=== PATIENT | female | born 1960 | race Caucasian/White ===

== ENCOUNTER → 2019-01-27 | Outpatient (CLI) | payer OTHER ==
--- NOTE | 2019-01-28 13:28 | MM ---
Reason for exam: screening (asymptomatic). Baseline mammogram. History: Patient is postmenopausal. Physical Findings: A clinical breast exam by your physician is recommended on an annual basis and results should be correlated with mammographic findings. MG 3D Screening Mammo W/Cad Bilateral CC and MLO view(s) were taken. No prior studies available for comparison. No suspicious abnormality. ASSESSMENT: Negative, BI-RAD 1 RECOMMENDATION: Routine screening mammogram of both breasts in 1 year.
== END | disposition home or self-care (01) ==
LOC: RADMAMWWP 11:14
PROVIDERS: ATTEND Family Medicine
DX: Z12.31 Encounter for screening mammogram for malignant neoplasm of breast (principal)
CPT/HCPCS: 77063; 77067

== ENCOUNTER 2019-09-04 09:16 | Day surgery (SDC) | payer OTHER ==
[2019-09-02 10:13] VITALS: BMI 28.5
[~2019-09-04 09:16] MED LIST: DEXAMETHASONE SOD PHOSPHATE 10 MG/ML 1 ML VIAL IV ONE; HEPARIN SODIUM,PORCINE 5,000 UNIT/ML 1 ML VIAL SQ ONE; LACTATED RINGERS 1,000 ML IV SCH; ONDANSETRON 4 MG/2 ML VIAL IVP PRN
[2019-09-04] MEDS ORDERED: GABAPENTIN 300 MG CAP PO STA (09:22)
[2019-09-04] MEDS ORDERED: ACETAMINOPHEN TAB 500 MG TAB PO STA (09:22)
[2019-09-04] MEDS ORDERED: INDOCYANINE GREEN 25 MG VIAL IV STA (09:22)
--- NOTE | 2019-09-04 09:25 | P.GSHP ---
History of Present Illness H&P Date: 09/04/19 CHIEF COMPLAINT: Cholecystitis HISTORY OF PRESENT ILLNESS: The patient is a 59-year-old female who presents with history of epigastric including right upper quadrant abdominal pain. She underwent diagnostic studies for her gallbladder. Separately her clinical picture was consistent with cholecystitis. Now she presents for surgical intervention. PAST MEDICAL HISTORY: Please see list PAST SURGICAL HISTORY: Please see list MEDICATIONS: Please see list ALLERGIES: Denies. SOCIAL HISTORY: No illicit drug use or recent tobacco use FAMILY HISTORY: Pertinent for gallbladder disease REVIEW OF ORGAN SYSTEMS: CONSTITUTIONAL: No reports of fevers or chills. HEENT: Denies any troubles with the vision or hearing. ENDOCRINE: No reports of hypothyroidism. Has diabetes. RESPIRATORY: No recent pneumonias. CARDIOVASCULAR: Denies chest pain or palpitations. Recent stress test 6 months a go. EF > 40%. GI: No blood in stools or constipation. MUSCULOSKELETAL: Has occasional joint pain including back pain. NEURO: No seizure disorders or headaches. No recent stroke. PSYCH: No depression or suicidal ideation. GENITOURINARY: No active blood in urine. No urinary hesitancy. HEMATOLOGIC: No personal or family history of DVTs or pulmonary emboli. SKIN: No skin cancer. PHYSICAL EXAM: VITAL SIGNS: Afebrile vital signs stable GENERAL: Well-developed pleasant in no acute distress. HEENT: No scleral icterus. Extraocular movements grossly intact. Moist buccal mucosa. NECK: Supple without lymphadenopathy. CHEST: Unlabored respirations. Equal bilateral excursions. CARDIOVASCULAR: Regular rate regular rhythm rhythm. Distal 2+ pulses. ABDOMEN: Soft, nondistended. Tender along the epigastrium and right upper quadrant. MUSCULOSKELETAL: No clubbing, cyanosis, or edema. NEURO: Cranial nerves II to XII within normal limits. No focal or lateralizing signs. PSYCH: Alert and oriented to person, place and time. SKIN: Well-perfused good skin turgor. ASSESSMENT: 1. Epigastric and right upper quadrant abdominal pain 2. Chronic cholecystitis 3. Symptomatic gallstones. PLAN: 1. Will need a robotic cholecystectomy possible open. Benefits and risks were described. 2. Heparin for DVT prophylaxis 5000 units. 3. Antibiotic prophylaxis. Past Medical History Past Medical History: Asthma, Diabetes Mellitus, GERD/Reflux, Hyperlipidemia, Hypertension, Myocardial Infarction ([place]) Additional Past Medical History / Comment(s): "allergy induced asthma" Last Myocardial Infarction Date:: 2001 History of Any Multi-Drug Resistant Organisms: None Reported Past Surgical History: Heart Catheterization, Tubal Ligation Past Anesthesia/Blood Transfusion Reactions: Postoperative Nausea & Vomiting (PONV) Smoking Status: Former smoker - Past Family History Mother Family Medical History: No Reported History Medications and Allergies Home Medications Medication Instructions Recorded Confirmed Type Atorvastatin [Lipitor] 10 mg PO DAILY 09/02/19 09/02/19 History Famotidine [Pepcid] 20 mg PO DAILY PRN 09/02/19 09/02/19 History Glimepiride [Amaryl] 4 mg PO BID 09/02/19 09/02/19 History Lisinopril [Prinivil] 5 mg PO BID 09/02/19 09/02/19 History metFORMIN HCL 1,000 mg PO HS 09/02/19 09/02/19 History metFORMIN HCL [Glucophage] 500 mg PO DAILY 09/02/19 09/02/19 History Allergies Allergy/AdvReac Type Severity Reaction Status Date / Time ciprofloxacin [From Cipro] Allergy Unknown Verified 09/02/19 10:02 clarithromycin [From Biaxin] Allergy Unknown Verified 09/02/19 10:02 Sulfa (Sulfonamide Allergy Unknown Verified 09/02/19 10:02 Antibiotics)
[2019-09-04 09:50] VITALS: RESP 16
[2019-09-04 10:12] LABS: Glucose,Whole Blood 226 mg/dL (75-99)
[2019-09-04] MEDS: ONDANSETRON 4 MG/2 ML VIAL IVP ONE ×2 (10:16→13:24)
[2019-09-04] MEDS ORDERED: INSULIN ASPART (NovoLOG) 100 UNIT/ML VIAL SQ ONE ×2 (10:16→13:33)
[2019-09-04 10:20] LABS: Potassium 4.7 mmol/L (3.5-5.1); Total Bilirubin 0.4 mg/dL (0.2-1.3); Total Protein 7.2 g/dL (6.3-8.2)
[2019-09-04] MEDS ORDERED: SCOPOLAMINE 1.5MG/72HR PATCH TRANSDERM ONE (10:21)
[2019-09-04 10:37] LABS: Basophils % (A) 1 %; Eosinophils # (A) 0.2 k/uL (0-0.7); Eosinophils % (A) 3 %; HCT 33.9 % (34.0-46.0); HGB 11.5 gm/dL (11.4-16.0); Lymphocytes # (A) 2.4 k/uL (1.0-4.8); Lymphocytes % (A) 38 %; MCH 28.9 pg (25.0-35.0); MCV 84.9 fL (80.0-100.0); Mean Platelet Volume 6.9; Monocytes # (A) 0.3 k/uL (0-1.0); Monocytes % (A) 5 %; Neutrophils # (A) 3.3 k/uL (1.3-7.7); Neutrophils % (A) 52 %; Platelet Count 339 k/uL (150-450); RBC 3.99 m/uL (3.80-5.40); RDW 12.7 % (11.5-15.5); WBC 6.3 k/uL (3.8-10.6)
[2019-09-04] MEDS ORDERED: MIDAZOLAM 2 MG/2 ML VIAL IV ONE (11:02)
--- NOTE | 2019-09-04 11:20 | P.ANPRN ---
Procedure Note - Anesthesia - Nerve Block Performed Bilateral Transversus Abdominis Single Time Out Performed: Yes Date of Procedure: 09/04/19 Procedure Start Time: 11:01 Procedure Stop Time: 11:06 Location of Patient: PreOp Indication: Acute Post-Operative Pain, Analgesia, Dx/Pain Location, Requested by Surgeon Sedation Type: Sedate with meaningful contact maintained Preparation: Sterile Prep Position: Supine Needle Types: Pajunk Needle Gauge: 21 Ultrasound used to visualize needle placement: Yes Ultrasound used to observe medication spread: Yes Injectate: Other (see comment) (0.25% ropivacaine 30cc b/l) Blood Aspirated: No Pain Paresthesia on Injection Noted: No Image Stored and Saved: Yes Events: Uneventful and Well Tolerated
[2019-09-04] MEDS ORDERED: MIDAZOLAM 2 MG/2 ML VIAL ONE (11:55)
[2019-09-04] MEDS ORDERED: INDOCYANINE GREEN 25 MG VIAL IV ONE (11:55)
[2019-09-04] MEDS ORDERED: GLYCOPYRROLATE 0.2 MG/ML 2 ML VIAL ONE (11:55)
[2019-09-04] MEDS ORDERED: PROPOFOL 10 MG/ML 20 ML VIAL IV ONE (11:55)
[2019-09-04] MEDS ORDERED: LIDOCAINE 1% INJ 10MG/ML (20 ML MDV) ONE (11:55)
[2019-09-04] MEDS ORDERED: ROPIVACAINE 5 MG/ML 30 ML VIAL ONE (11:55)
[2019-09-04] MEDS ORDERED: SUCCINYLCHOLINE CHLORIDE 100 MG/5 ML SYR IV ONE (11:55)
[2019-09-04] MEDS ORDERED: NEOSTIGMINE 1 MG/ML 10 ML VIAL ONE (11:55)
[2019-09-04] MEDS ORDERED: fentaNYL (PF) 50 MCG/ML 2 ML AMP ONE (11:55)
[2019-09-04] MEDS ORDERED: ROCURONIUM BROMIDE 10 MG/ML 10 ML VIAL IV ONE (11:55)
[2019-09-04] MEDS ORDERED: LACTATED RINGERS 1,000 ML IV ONE (12:36)
[2019-09-04] MEDS ORDERED: BUPIVACAIN-EPI 0.25%-1:200,000 30 ML VIAL SQ ONE (12:36)
--- NOTE | 2019-09-04 13:10 | P.OP ---
Date of Procedure: 09/04/19 Description of Procedure: SURGEON: REVA TATE MD PREOPERATIVE DIAGNOSES: 1. Right upper quadrant abdominal pain 2. Chronic cholecystitis 3. Diabetes mellitus type II, uncontrolled 4. Hypertensive heart disease 5. Hyperlipidemia 6. Gastroesophageal reflux disease POSTOPERATIVE DIAGNOSES: 1. Right upper quadrant abdominal pain 2. Chronic cholecystitis 3. Diabetes mellitus type II, uncontrolled 4. Hypertensive heart disease 5. Hyperlipidemia 6. Gastroesophageal reflux disease 7. Hepatomegaly, severe OPERATION: Robotic-assisted da Rosi Xi laparoscopic cholecystectomy, multiport with FIREFLY ESTIMATED BLOOD LOSS: 5 mL. SPECIMENS REMOVED: Gallbladder. COMPLICATIONS: None. OPERATIVE FINDINGS: 1. Chronic cholecystitis 2. Console time 8 minutes INDICATIONS: The patient is a 59-year-old female who presents with cholelcystitis. Surgical intervention with a laparoscopic cholecystectomy was described at length including injury to the biliary tree, bleeding, infection, need for further surgery. Informed consent was obtained. Robotic assisted laparoscopic approach was described. Benefits and risks of the procedure including but not limited to bleeding, infection, injury to the biliary tree was described. Informed consent was obtained. DESCRIPTION OF PROCEDURE: Patient was brought to the operating room, placed in supine position. After general induction, the abdomen had been prepped and draped in standard sterile fashion. The robotic da Rosi XI system was primed. After a timeout protocol was performed, the patient had been prepped and draped in standard sterile fashion. The patient was injected with indocyanine green. A 5 mm 0 degrees laparoscopic trocar entry was performed along the left upper quadrant. The abdomen insufflated to 15 mmHg pressure which was tolerated well. Diagnostic laparoscopy demonstrated no injury to bowel viscera or mesentery. The liver surface was unremarkable. Next, two 8 mm robotic ports were placed along the right upper abdomen. The camera 8-mm port was maintained along the epigastrium. Another 8 mm port was placed along the left upper abdominal wall after exchanging the 5 mm port. Please note that the ports were placed at least 10 to 15 cm away from the target anatomy of the gallbladder. The robot was docked along the left lateral abdomen. The patient was repositioned in reverse Trendelenburg position. Using a grasper for arm 3, a grasper for arm 4, including hook cautery for arm 1, the robotic system was docked and primed as described. Instruments were interchanged by the congressional assistant including hook cautery, Bovie cautery and clip appliers. I had sat at the console. Omental adhesions along the gallbladder infundibulum were lysed using hook cautery. The gallbladder was moderately enlarged with severe hepatomegaly due to fatty liver disease adding complexity to the case. The gallbladder fundus was retracted over the dome of the liver. Initial attention was brought to the infundibulum which was gently retracted in the inferior lateral approach. Using a grasper, the cystic duct including the cystic artery was carefully skeletonized. FIREFLY was used to identify the cystic artery and cystic structures. A critical view of safety was obtained. Large PLASTIC clips were used throughout the entire case. Using a clip site damage prevention technician 1 clip was placed proximally, and 1 clip was placed between the infundibulum and cystic duct and divided using cautery. Next, the cystic artery was similarly clipped and cauterized. Electro-Bovie cautery was used to remove the gallbladder from the hepatic fossa with decompression. Bile was removed with sponges. Hemostasis was checked and found to be adequate. The robot was undocked. I re-scrubbed into the case. Using a 10 mm Endo Catch bag via the left upper quadrant incision, the specimen was removed from the abdominal cavity. All pneumoperitoneum instruments were evacuated from the abdominal cavity. The incisions were reapproximated using 4-0 Monocryl in an interrupted subcuticular fashion. Fascial defects were less than 8 mm in size. Please note along the trocar sites, local anesthetic was placed as a field block prior to insertion of all instruments. Liquid glue was applied to the skin. At the end of the procedure needle, sponge, and instrument count had been verified correct by the certified surgical tech/first assistant. The patient was transferred to postanesthesia care unit in stable condition. Intraoperative films were shared with the patient's family who were very pleased with the level of care. Plan - Discharge Summary New Discharge Prescriptions: New Acetaminophen Tab [Tylenol Tab] 500 mg PO Q6H PRN #30 tablet PRN Reason: Pain No Action metFORMIN HCL 1,000 mg PO HS Lisinopril [Prinivil] 5 mg PO BID Glimepiride [Amaryl] 4 mg PO BID Atorvastatin [Lipitor] 10 mg PO DAILY metFORMIN HCL [Glucophage] 500 mg PO DAILY Famotidine [Pepcid] 20 mg PO DAILY PRN PRN Reason: Gi Upset Discharge Medication List Atorvastatin [Lipitor] 10 mg PO DAILY 09/02/19 [History] Famotidine [Pepcid] 20 mg PO DAILY PRN 09/02/19 [History] Glimepiride [Amaryl] 4 mg PO BID 09/02/19 [History] Lisinopril [Prinivil] 5 mg PO BID 09/02/19 [History] metFORMIN HCL 1,000 mg PO HS 09/02/19 [History] metFORMIN HCL [Glucophage] 500 mg PO DAILY 09/02/19 [History] Acetaminophen Tab [Tylenol Tab] 500 mg PO Q6H PRN #30 tablet 09/04/19 [Rx] Follow up Appointment(s)/Referral(s): Reva Tate MD [STAFF PHYSICIAN] - 09/09/19 Patient Instructions/Handouts: Low Fat Diet (ED), Laparoscopic Cholecystectomy (DC) Activity/Diet/Wound Care/Special Instructions: No lifting over 10 pounds in 2 weeks until 09/18/2019. May shower. No bath tub soaks for 2 weeks, 09/18/2019. For pain, use ice packs as needed. Discharge Disposition: HOME SELF-CARE
[2019-09-04 13:16] VITALS: TEMP 98
[2019-09-04] MEDS: HYDROmorphone 0.5 MG/0.5 ML SYRINGE IVP PRN ×2 (13:20→13:24)
[2019-09-04 13:31] LABS: Glucose,Whole Blood 309 mg/dL (75-99)
[2019-09-04 15:15] VITALS: BP 147/79; PULSE 82
--- NOTE | 2019-09-09 14:25 | CDI ---
Date: 09.09.19 CDS/Director Of Philanthropy Name: Yashira Denton Phone: If any questions, call Arlene Rodriguez, Personal Financial Advisor at [phone] Pt Name: Alexandria Buckley Adm Date: 09.04.19 Dis Date: 09.04.19 Attention: The [facility] Coding Staff appreciate your assistance in clarifying documentation. Please respond to the clarification below the line at the bottom and electronically sign. The [facility] Coding Staff will review the response and follow up if needed. Please note: Queries are made part of the Legal Health Record. If you have any questions, please contact the Personal Financial Advisor. Dear Dr. Tate: The OP Note has DM II, uncontrolled Please specify weather hypoglycemic or hyperglycemic. Thank you for your kind consideration. Diabetes type 2, uncontrolled with hyperglycemia KM 09/09/19 @ 21:34 [facility]
== END 2019-09-04 15:45 | disposition home or self-care (01) ==
LOC: OR 09:16
PROVIDERS: ATTEND Surgery Plastic and Reconstructive Surgery
DX: K80.10 Calculus of gallbladder with chronic cholecystitis without obstruction (principal); K66.0 Peritoneal adhesions (postprocedural) (postinfection); K76.0 Fatty (change of) liver, not elsewhere classified; E11.65 Type 2 diabetes mellitus with hyperglycemia; I11.9 Hypertensive heart disease without heart failure; M25.50 Pain in unspecified joint; M54.9 Dorsalgia, unspecified; J45.998 Other asthma; K21.9 Gastro-esophageal reflux disease without esophagitis; E78.5 Hyperlipidemia, unspecified; I25.2 Old myocardial infarction; Z98.890 Other specified postprocedural states; Z98.51 Tubal ligation status; Z87.898 Personal history of other specified conditions; Z87.891 Personal history of nicotine dependence; Z79.899 Other long term (current) drug therapy; Z79.4 Long term (current) use of insulin; Z88.1 Allergy status to other antibiotic agents; Z88.2 Allergy status to sulfonamides; Z83.79 Family history of other diseases of the digestive system
CPT/HCPCS: 47562; S2900; 64488; 80053; 85025; 88304

== ENCOUNTER 2019-11-06 06:26 | Day surgery (SDC) | payer OTHER ==
[2019-11-03 14:01] VITALS: BMI 27.4
[~2019-11-06 06:26] MED LIST changes: -DEXAMETHASONE SOD PHOSPHATE 10 MG/ML 1 ML VIAL IV ONE; -HEPARIN SODIUM,PORCINE 5,000 UNIT/ML 1 ML VIAL SQ ONE; +LIDOCAINE 1% 20 ML VIAL (10MG/ML) FOR IV START INTRADERMA PRN; -ONDANSETRON 4 MG/2 ML VIAL IVP PRN
[2019-11-06 06:52] VITALS: TEMP 98.3
[2019-11-06 06:58] LABS: Glucose,Whole Blood 179 mg/dL (75-99)
[2019-11-06] MEDS ORDERED: PROPOFOL 10 MG/ML 20 ML VIAL IV ONE (07:02)
--- NOTE | 2019-11-06 07:23 | P.GSHP ---
History of Present Illness H&P Date: 11/06/19 CHIEF COMPLAINT: Colon screen HISTORY OF PRESENT ILLNESS: The patient is a 59-year-old female who presents for colon screen. Lower endoscopy was offered for further evaluation and management. PAST MEDICAL HISTORY: Please see list. PAST SURGICAL HISTORY: Please see list. MEDICATIONS: Please see list. ALLERGIES: Please see list. SOCIAL HISTORY: No illicit drug use FAMILY HISTORY: No reports of Crohn disease or ulcerative colitis. REVIEW OF ORGAN SYSTEMS: CONSTITUTIONAL: No reports of fevers or chills. PHYSICAL EXAM: VITAL SIGNS: Stable GENERAL: Well-developed pleasant in no acute distress. HEENT: No scleral icterus. Extraocular movements grossly intact. Moist buccal mucosa. NECK: Supple without lymphadenopathy. CHEST: Unlabored respirations. Equal bilateral excursions. CARDIOVASCULAR: Regular rate and rhythm. Distal 2+ pulses. ABDOMEN: Soft, nontender, nondistended. MUSCULOSKELETAL: No clubbing, cyanosis, or edema. ASSESSMENT: 1. Colon screen. PLAN: 1. Recommend proceeding with a lower endoscopy Past Medical History Past Medical History: Asthma, Diabetes Mellitus, GERD/Reflux, Hyperlipidemia, Hypertension, Myocardial Infarction ([place]) Additional Past Medical History / Comment(s): "exercise induced asthma" Last Myocardial Infarction Date:: 2001 History of Any Multi-Drug Resistant Organisms: None Reported Past Surgical History: Cholecystectomy, Heart Catheterization, Tubal Ligation Past Anesthesia/Blood Transfusion Reactions: Postoperative Nausea & Vomiting (PONV) Smoking Status: Former smoker - Past Family History Mother Family Medical History: No Reported History Medications and Allergies Home Medications Medication Instructions Recorded Confirmed Type Atorvastatin [Lipitor] 10 mg PO DAILY 09/02/19 11/06/19 History Famotidine [Pepcid] 20 mg PO DAILY PRN 09/02/19 11/06/19 History Glimepiride [Amaryl] 4 mg PO BID 09/02/19 11/06/19 History Lisinopril [Prinivil] 5 mg PO BID 09/02/19 11/06/19 History metFORMIN HCL 1,000 mg PO HS 09/02/19 11/06/19 History metFORMIN HCL [Glucophage] 500 mg PO QAM 09/02/19 11/06/19 History Acetaminophen Tab [Tylenol Tab] 500 mg PO Q6H PRN #30 tablet 09/04/19 11/06/19 Rx Allergies Allergy/AdvReac Type Severity Reaction Status Date / Time ciprofloxacin [From Cipro] Allergy Unknown Verified 09/04/19 09:52 clarithromycin [From Biaxin] Allergy Unknown Verified 09/04/19 09:52 Sulfa (Sulfonamide Allergy Unknown Verified 09/04/19 09:52 Antibiotics) Surgical - Exam Vital Signs Temp Pulse Resp BP Pulse Ox 98.3 F 104 H 20 174/74 98 11/06/19 06:40 11/06/19 06:40 11/06/19 06:40 11/06/19 06:40 11/06/19 06:40 Results - Labs Abnormal Lab Results - Last 24 Hours (Table) 11/06/19 Range/Units 06:51 POC Glucose (mg/dL) 179 H (75-99) mg/dL
--- NOTE | 2019-11-06 07:31 | P.PCN ---
Date of Procedure: 11/06/19 Description of Procedure: PREOPERATIVE DIAGNOSIS: Colonoscopy screening. POSTOPERATIVE DIAGNOSIS: Colonoscopy screening. Diverticulosis, scattered. OPERATION: Colonoscopy to the ileocecal valve and appendiceal orifice. SURGEON: Reva Tate MD. ANESTHESIA: MAC. INDICATIONS: The patient is a 59-year-old female who presents for her first colonoscopy screening. Benefits and risks were described and informed consent was obtained. DESCRIPTION OF PROCEDURE: The patient had undergone Suprep. She had been brought into the operating room and laid in the left lateral decubitus position. After adequate intravenous sedation, the rectum was examined with 2% lidocaine jelly. External hemorrhoids were encountered. The rectal tone was within normal limits. No lesions were palpated in the rectal vault. An Olympus colonoscope was advanced until the ileocecal valve and appendiceal orifice were clearly viewed. The prep was fair. Moderate scattered diverticulosis was encountered. No large colonic polyps were found. No evidence of focal colitis was found. Retroflexion of the scope demonstrated grade 1 internal hemorrhoids without active bleeding or inflammation. The colon was desufflated. The patient had tolerated the procedure well. Withdrawal time was over 6 minutes. FINDINGS: Aronchick preparation quality scale (1-5) Internal hemorrhoids, grade 1 External prolapsed hemorrhoids, grade 2 No arteriovenous malformations. No adenomatous polyps. No focal colitis. Moderate scattered diverticulosis RECOMMENDATIONS: Lower in 10 years, 2030 or Cologaurd. Plan - Discharge Summary Discharge Rx Participant: Yes New Discharge Prescriptions: No Action metFORMIN HCL 1,000 mg PO HS Lisinopril [Prinivil] 5 mg PO BID Glimepiride [Amaryl] 4 mg PO BID Atorvastatin [Lipitor] 10 mg PO DAILY metFORMIN HCL [Glucophage] 500 mg PO QAM Famotidine [Pepcid] 20 mg PO DAILY PRN PRN Reason: Gi Upset Acetaminophen Tab [Tylenol Tab] 500 mg PO Q6H PRN #30 tablet PRN Reason: Pain Discharge Medication List Atorvastatin [Lipitor] 10 mg PO DAILY 09/02/19 [History] Famotidine [Pepcid] 20 mg PO DAILY PRN 09/02/19 [History] Glimepiride [Amaryl] 4 mg PO BID 09/02/19 [History] Lisinopril [Prinivil] 5 mg PO BID 09/02/19 [History] metFORMIN HCL 1,000 mg PO HS 09/02/19 [History] metFORMIN HCL [Glucophage] 500 mg PO QAM 09/02/19 [History] Acetaminophen Tab [Tylenol Tab] 500 mg PO Q6H PRN #30 tablet 09/04/19 [Rx] Follow up Appointment(s)/Referral(s): Reva Tate MD [STAFF PHYSICIAN] - As Needed Patient Instructions/Handouts: *Surgery [facility] - (Anesthesia) Endoscopy Discharge Instructions, Diverticulosis (DC), Diverticulosis Diet (GEN), Colonoscopy (DC) Activity/Diet/Wound Care/Special Instructions: Repeat colonoscopy in 10 years, 2030 or Cologaurd Discharge Disposition: HOME SELF-CARE
[2019-11-06 07:46] VITALS: BP 136/63; PULSE 79; RESP 18
== END 2019-11-06 07:58 | disposition home or self-care (01) ==
LOC: ORWHC2ENDO 06:26
PROVIDERS: ATTEND Surgery Plastic and Reconstructive Surgery
DX: Z12.11 Encounter for screening for malignant neoplasm of colon (principal); K64.0 First degree hemorrhoids; K64.1 Second degree hemorrhoids; K57.90 Diverticulosis of intestine, part unspecified, without perforation or abscess without bleeding; J45.909 Unspecified asthma, uncomplicated; I10 Essential (primary) hypertension; I25.2 Old myocardial infarction; E11.9 Type 2 diabetes mellitus without complications; K21.9 Gastro-esophageal reflux disease without esophagitis; E78.5 Hyperlipidemia, unspecified; Z90.49 Acquired absence of other specified parts of digestive tract; Z98.51 Tubal ligation status; Z87.891 Personal history of nicotine dependence; Z79.84 Long term (current) use of oral hypoglycemic drugs; Z79.899 Other long term (current) drug therapy; Z88.1 Allergy status to other antibiotic agents; Z88.2 Allergy status to sulfonamides; Z88.8 Allergy status to other drugs, medicaments and biological substances
CPT/HCPCS: J2704; G0121; 45378

== ENCOUNTER → 2021-02-24 | Outpatient (CLI) | payer BC ==
[2021-02-24 19:52] LABS: HCT 37.8 % (37.2-46.3); HGB 11.5 g/dL (12.0-15.0); MCH 27.4 pg (27.0-32.0); MCHC 30.4 g/dL (32.0-37.0); Mean Platelet Volume 11.3 fL (9.5-12.2); Platelet Count 282 X 10*3/uL (140-440); RDW 14.2 % (11.5-14.5); WBC 8.76 X 10*3/uL (4.50-10.00)
[2021-02-24 23:23] LABS: Hemoglobin A1C 6.9 % (4.0-6.0)
[2021-02-25 00:22] LABS: Urine Creatinine 142.4 mg/dL
[2021-02-25 02:53] LABS: African American GFR (CKD) 63.6 (60.0-200.0); Anion Gap 10.3 mmol/L (4.00-12.00); BUN/Creat Ratio 22.73 Ratio (12.00-20.00); Calcium 9.6 mg/dL (8.7-10.3); Carbon Dioxide 25.7 mmol/L (21.6-31.8); Chol/HDL Ratio 3.43; Non-African American GFR(CKD) 54.9 (60.0-200.0); Potassium 4.3 mmol/L (3.5-5.5)
== END | disposition home or self-care (01) ==
LOC: LABWHC1 11:33
PROVIDERS: ATTEND Family Medicine
DX: Z00.00 Encounter for general adult medical examination without abnormal findings (principal); I10 Essential (primary) hypertension; E11.65 Type 2 diabetes mellitus with hyperglycemia; E78.5 Hyperlipidemia, unspecified
CPT/HCPCS: 36415; 80048; 80061; 82043; 82570; 83036; 84450; 84460; 85027

== ENCOUNTER → 2021-11-22 | Outpatient (CLI) | payer BC ==
[2021-11-22 18:55] LABS: HCT 33.9 % (37.2-46.3); HGB 10.5 g/dL (12.0-15.0); MCH 27.5 pg (27.0-32.0); MCV 88.7 fL (80.0-97.0); Mean Platelet Volume 11.4 fL (9.5-12.2); NRBC Per 100 WBC 0 /100 WBCS (0.0-0.0); Platelet Count 301 X 10*3/uL (140-440); RBC 3.82 X 10*6/uL (4.10-5.20); RDW 15.5 % (11.5-14.5)
[2021-11-22 21:26] LABS: African American GFR (CKD) 57.3 (60.0-200.0); Anion Gap 13.4 mmol/L (10.00-18.00); Blood Urea Nitrogen 22.8 mg/dL (9.0-27.0); Calcium 9.9 mg/dL (8.7-10.3); Carbon Dioxide 23.6 mmol/L (20.0-27.5); Non-African American GFR(CKD) 49.4 (60.0-200.0); Potassium 4.8 mmol/L (3.5-5.5)
== END | disposition home or self-care (01) ==
LOC: LABWHC1 13:05
PROVIDERS: ATTEND Family Medicine
DX: I10 Essential (primary) hypertension (principal); E11.9 Type 2 diabetes mellitus without complications; E78.5 Hyperlipidemia, unspecified
CPT/HCPCS: 36415; 80048; 83036; 84450; 84460; 85027

== ENCOUNTER → 2021-12-09 | Outpatient (CLI) | payer BC ==
[2021-12-10 00:44] LABS: % Iron Saturation 10.67 (12.00-45.00); African American GFR (CKD) 57.9 (60.0-200.0); Anion Gap 13.6 mmol/L (10.00-18.00); BUN/Creat Ratio 17.31 Ratio (12.00-20.00); Blood Urea Nitrogen 20.6 mg/dL (9.0-27.0); Calcium 9.8 mg/dL (8.7-10.3); Carbon Dioxide 24.4 mmol/L (20.0-27.5); Ferritin 44.7 ng/mL (10.0-291.0); Non-African American GFR(CKD) 49.9 (60.0-200.0); Potassium 4.3 mmol/L (3.5-5.5)
[2021-12-10 01:35] LABS: HCT 34.6 % (37.2-46.3); HGB 10.2 g/dL (12.0-15.0); MCH 26.6 pg (27.0-32.0); MCHC 29.5 g/dL (32.0-37.0); MCV 90.3 fL (80.0-97.0); Mean Platelet Volume 11.6 fL (9.5-12.2); NRBC Per 100 WBC 0 /100 WBCS (0.0-0.0); Platelet Count 319 X 10*3/uL (140-440); RBC 3.83 X 10*6/uL (4.10-5.20); RDW 14.9 % (11.5-14.5); WBC 7.56 X 10*3/uL (4.50-10.00)
== END | disposition home or self-care (01) ==
LOC: LABWHC1 14:14
PROVIDERS: ATTEND Family Medicine
DX: D64.9 Anemia, unspecified (principal); N18.31 Chronic kidney disease, stage 3a
CPT/HCPCS: 36415; 80048; 82728; 83540; 83550; 85027